=== PATIENT | female | born 1990 | race Asian ===

== ENCOUNTER 2021-11-04 07:50 | Inpatient (IN) | payer OTHER ==
[2021-11-04] MEDS ORDERED: ELECTROLYTE-148 SOLN 1,000 ML IV SCH (10:15)
[2021-11-04] MEDS ORDERED: BUTORPHANOL TARTRATE 1 MG/ML VIAL IVPB PRN (10:19)
[2021-11-04] MEDS ORDERED: PROMETHAZINE HCL 25 MG/1 ML VIAL IVPUSH PRN (10:19)
[2021-11-04 10:28] VITALS: BMI 26.6
[2021-11-04] MEDS ORDERED: OXYTOCIN 30 UNITS in 0.9% NS 30 UNIT/500 ML INFUS.BAG IVPB ONE (12:18)
[2021-11-04] MEDS ORDERED: OXYTOCIN 30 UNITS in 0.9% NS 30 UNIT/500 ML INFUS.BAG IVPB SCH (12:45)
[2021-11-04] MEDS ORDERED: FENTANYL/BUPIVACAINE/NS/PF - PCEA - 50 ML DISP.SYRIN EP ONE ×2 (14:00→19:07)
[2021-11-04] MEDS ORDERED: BUPIVACAINE HCL/PF 0.25% (2.5MG/ML) 10 ML VIAL ONE (14:06)
[2021-11-04] MEDS ORDERED: NALOXONE HCL 0.4 MG/ML VIAL IVPUSH PRN (14:46)
[2021-11-04] MEDS ORDERED: FENTANYL/BUPIVACAINE/NS/PF - PCEA - 50 ML DISP.SYRIN EP SCH (15:00)
[2021-11-04] MEDS ORDERED: LIDOCAINE HCL 1% PRESERVATIVE FREE - 30ML VIAL ONE (21:51)
[2021-11-04] MEDS ORDERED: OXYTOCIN 20 UNITS in 0.9% NS 20 UNIT/1,000 ML INFUS.BAG IV ONE (21:52)
[2021-11-05] MEDS: OXYTOCIN 20 UNITS in 0.9% NS 20 UNIT/1,000 ML INFUS.BAG IV SCH ×2 (00:10→07:22)
[2021-11-05] MEDS ORDERED: oxyCODONE HCL 5 MG TABLET PO PRN (00:34)
[2021-11-05] MEDS ORDERED: BENZOCAINE 20% 57 GM BOTTLE TP PRN (00:34)
[2021-11-05] MEDS ORDERED: BISACODYL 10 MG SUPP.RECT RC PRN (00:34)
[2021-11-05] MEDS ORDERED: METHYLERGONOVINE MALEATE 0.2 MG/1 ML AMP IM PRN (00:34)
[2021-11-05] MEDS ORDERED: BENZOCAINE 28 GM HEMORRHOIDAL OINTMENT TP PRN (00:34)
[2021-11-05] MEDS ORDERED: ACETAMINOPHEN 325 MG TABLET (FP) PO PRN (00:34)
[2021-11-05] MEDS ORDERED: WITCH HAZEL 50% (TUCKS) 40 PAD/JAR PAD TP PRN (00:34)
[2021-11-05] MEDS ORDERED: IBUPROFEN 600 MG TABLET (FP) PO ONE ×2 (00:36→07:12)
[2021-11-05] MEDS: IBUPROFEN 600 MG TABLET (FP) PO PRN ×3 (00:40→16:40)
[2021-11-05] MEDS ORDERED: OXYTOCIN 20 UNITS in 0.9% NS 20 UNIT/1,000 ML INFUS.BAG IV ONE (07:02)
[2021-11-05 08:01] LABS: POC NITRAZINE POS
[2021-11-06] MEDS: IBUPROFEN 600 MG TABLET (FP) PO PRN ×4 (00:01→21:15)
[2021-11-06 07:58] LABS: BASO % 0.3 % (0-2.0); EOS % 0.9 % (0-4.5); HEMATOCRIT 27.4 % (32.4-45.2); HEMOGLOBIN 9.2 GM/dL (10.7-15.3); LYMPH % 14.7 % (8-40); MCH 29.6 pg (25.7-33.7); MCHC 33.4 g/dl (32.0-36.0); MEAN CELL VOLUME 88.6 fl (80-96); MEAN PLT VOLUME 7.5 fl (7.5-11.1); NEUT % 78.1 % (42.8-82.8); PLATELET COUNT 263 10^3/uL (134-434); RBC 3.09 M/mm3 (3.60-5.2); RDW 13.1 % (11.6-15.6); WHITE BLOOD COUNT 14.8 K/mm3 (4.0-10.0)
[2021-11-06] MEDS ORDERED: FLU VACC QS2021-22(6MOS UP)/PF 60 MCG/0.5 ML SYRINGE IM ONE (10:00)
[2021-11-06 21:41] VITALS: TEMP 97.9
[2021-11-06] MEDS ORDERED: SENNOSIDES/DOCUSATE COMBO (SENNA PLUS) TABLET (UD) PO PRN (22:00)
[2021-11-07 10:54] VITALS: BP 95/60; PULSE 79
== END 2021-11-07 12:15 | disposition home or self-care (01) | DRG 560 ==
LOC: JLDR 07:50 → J3W 11-05 08:00
PROVIDERS: ADMIT Specialist; ATTEND Specialist
PROC: 10D07Z6 Extraction of Products of Conception, Vacuum, Via Natural or Artificial Opening (ICD-10-PCS; principal; 2021-11-05)
PROC: 0W8NXZZ Division of Female Perineum, External Approach (ICD-10-PCS; 2021-11-05)
DX: O24.429 Gestational diabetes mellitus in childbirth, unspecified control (principal); O42.92 Full-term premature rupture of membranes, unspecified as to length of time between rupture and onset of labor; Z3A.39 39 weeks gestation of pregnancy; Z29.13 Encounter for prophylactic Rho(D) immune globulin; Z37.0 Single live birth
CPT/HCPCS: 36415; 59409; 80053; 82962; 83986-QW; 85025; 85027; 85461; 85610; 85730; 86780; 86850; 86870; 86900; 86901; 86902; 86999; 90686; C9803-CS; G0008; U0003; U0005